=== PATIENT | female | born 1980 | race Caucasian/White ===

== ENCOUNTER 2016-05-17 07:55 | Day surgery (SDC) | payer BC ==
[2016-05-08 15:00] LABS: BASOPHILS 0.8 %; BASOPHILS ABSOLUTE 0.05 10/3/uL (0.0-0.16); EOSINOPHILS 1.7 %; EOSINOPHILS ABSOLUTE 0.11 10/3/uL (0.0-0.53); HEMATOCRIT 37.2 % (36.0-48.0); HEMOGLOBIN 12.8 g/dL (12.0-16.0); IMMATURE GRANULOCYTES 0.2 %; IMMATURE GRANULOCYTES ABSOLUTE 0.01 10/3/uL (0.0-0.11); LYMPHOCYTES 26.2 %; LYMPHOCYTES ABSOLUTE 1.74 10/3/uL (0.67-4.30); MEAN CORPUS HGB CONC 34.4 g/dL (32.0-36.0); MEAN CORPUSCULAR HEMOGLOB 31.3 pg (26.0-34.0); MEAN PLATELET VOLUME 9.8 fL (9.2-13.0); MONOCYTES 5.6 %; MONOCYTES ABSOLUTE 0.37 10/3/uL (0.21-1.20); NEUTROPHILS 65.5 %; NEUTROPHILS ABSOLUTE 4.35 10/3/uL (2.02-8.40); PLATELET COUNT 293 10/3/uL (150-400); RBC DISTRIBUTION WIDTH 12.3 % (12.0-16.0); RED CELL COUNT 4.09 10/6/uL (4.0-5.6); WHITE BLOOD CELLS 6.6 10/3/uL (4.5-10.5)
[2016-05-08 15:08] LABS: MANUAL DIFF NO %
[2016-05-08 15:17] LABS: ASCORBIC ACID (UR NOT ORDER) NEG (NEG); BILIRUBIN, URINE NEGATIVE (NEG); KETONE, URINE NEGATIVE (NEG); LEUKOCYTE ESTERASE(NOT OR NEG (NEG); WBC (NOT ORDERED) (RFLEX) 1 (0-5)
--- NOTE | ~2016-05-17 | OP ---
Record Of Operation [facility] [address] [place] [address] NAME: IRMA PRADO : 84 STATUS : [facility]#: [id number] AGE: 35 ADM/REG DATE : 05/17/16 MR#: [id number] REPORT SERV DATE: 06/02/16 DICTATED BY: CAROLINA TAY DATE: 06/02/16 REPORT STATUS : Draft TRANSCRIBED BY: MODL DATE: 06/02/16 DATE OF PROCEDURE: 05/17/2016 PREOPERATIVE DIAGNOSIS: Secondary infertility, pelvic pain. OPERATION PERFORMED: Diagnostic laparoscopy. FINAL DIAGNOSIS: Pelvic pain, pelvic congestion syndrome involving veins of both broad ligaments. DESCRIPTION OF OPERATION PERFORMED: The patient was taken to the operating room, prepped and draped in usual manner. General type anesthesia intubation was used. Both the vaginal and abdominal prep were performed, the acorn tenaculum was attached to the cervix to allow for uterine manipulation during the procedure. A small periumbilical incision was made on the cavity, filled 3 L of CO2 without difficulty. The upper scope was introduced. There was good visualization of the pelvic cavity. The patient had her tubes tied previously and was wanting to have the reanastomosed, however, examination of the uterus and fallopian tubes, there was not enough fallopian tube on either side to reanastomose, to get them bring very close to the uterus, and the remaining amount of tube on both sides was insufficient for reanastomosis. The patient's uterus appeared normal. There is some large veins bilaterally and the broad ligament. The ovaries were normal. No other procedures were performed. The gas was allowed to escape. The skin was closed 4-0 Monocryl in interrupted fashion. Marcaine was infiltrated for postoperative pain relief. The patient was taken to the recovery room in satisfactory condition. The acorn tenaculum had been removed from the vagina. RB/SAUD Carolina Tay D.O. / [id number] CC: Nelson Shepherd MD
[~2016-05-17 07:55] MED LIST: SUBOXONE 2 MG-1 EAC1 SL
== END 2016-05-17 13:21 | disposition home or self-care (01) ==
LOC: SDC 07:55
PROVIDERS: Obstetrics & Gynecology
PROC: 0WJJ4ZZ Inspection of Pelvic Cavity, Percutaneous Endoscopic Approach (ICD-10-PCS; principal; 2016-05-17 09:15)
DX: N94.89 Other specified conditions associated with female genital organs and menstrual cycle (principal); N97.9 Female infertility, unspecified; R10.2 Pelvic and perineal pain; Z88.6 Allergy status to analgesic agent; Z98.51 Tubal ligation status; Z87.891 Personal history of nicotine dependence; Z98.890 Other specified postprocedural states
CPT/HCPCS: 81001; 84703; 85025; A9270-GY; J0694; J2250; J2270; J2405; J2710; J3010